=== PATIENT | female | born 1965 | race Caucasian/White ===

== ENCOUNTER 2017-02-19 19:35 | Emergency (ER) | payer OTHER ==
[2017-02-19 19:43] VITALS: TEMP 98.3
--- NOTE | 2017-02-19 20:12 | C.PDOC ---
History Of Present Illness 51 y/o female presents to the ED with complaints of worsening pain to sole of left foot x3 weeks. Pt states pain increases with walking and also notes swelling. Denies trauma, weakness, numbness or any other complaints. Time Seen by Provider: 02/19/17 19:44 Chief Complaint (Nursing): Lower Extremity Problem/Injury History Per: Patient History/Exam Limitations: no limitations Onset/Duration Of Symptoms: Days Current Symptoms Are (Timing): Worse Severity: Moderate Recent travel outside of the [place]: No Past Medical History Reviewed: Historical Data, Nursing Documentation, Vital Signs Vital Signs: Last Vital Signs Temp 98.3 F 02/19/17 19:40 Pulse 72 02/19/17 20:28 Resp 18 02/19/17 20:28 BP 142/72 02/19/17 20:28 Pulse Ox 99 02/19/17 20:43 - Medical History PMH: HTN Family History: States: Unknown Family Hx - Social History Hx Tobacco Use: No Hx Alcohol Use: No Hx Substance Use: No - Immunization History Hx Tetanus Toxoid Vaccination: No Hx Influenza Vaccination: No Hx Pneumococcal Vaccination: No Review Of Systems Except As Marked, All Systems Reviewed And Found Negative. Constitutional: Negative for: Fever, Chills Musculoskeletal: Positive for: Foot Pain (left foot pain and swelling) Neurological: Negative for: Weakness, Numbness Physical Exam - Physical Exam Appears: Non-toxic, No Acute Distress Skin: Warm, Dry, No Rash Head: Atraumatic, Normacephalic Eye(s): bilateral: Normal Inspection, PERRL Extremity: Normal ROM, No Pedal Edema, Capillary Refill (<2 seconds), Other ( large callus at distal plantar aspect left forefoot; no erythema, warmth or fluctuant mass) Pulses: Left Dorsalis Pedis: Normal Neurological/Psych: Oriented x3, Normal Speech, Normal Motor, Normal Sensation Gait: Steady ED Course And Treatment O2 Sat by Pulse Oximetry: 99 (room air) Pulse Ox Interpretation: Normal Disposition Counseled Patient/Family Regarding: Diagnosis, Need For Followup - Disposition Referrals: Shaik Michael MD [Primary Care Provider] - Disposition: HOME/ ROUTINE Disposition Time: 20:07 Condition: STABLE Additional Instructions: Please follow up with Podiatry Take motrin for pain Soak feet Return to ER if worse Forms: General Discharge Instructions - Clinical Impression Clinical Impression: Callus of foot - 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 - Scribe Statement The provider has reviewed the documentation as recorded by the Scribe Yovani Barron All medical record entries made by the Scribe were at my direction and personally dictated by me. I have reviewed the chart and agree that the record accurately reflects my personal performance of the history, physical exam, medical decision making, and the department course for this patient. I have also personally directed, reviewed, and agree with the discharge instructions and disposition.
[2017-02-19 20:30] VITALS: BP 142/72; PULSE 72; RESP 18
[2017-02-19 20:39] VITALS: O2SAT 99
== END 2017-02-19 20:30 | disposition home or self-care (01) ==
LOC: C.ER 19:35 → SUPCPDRO 19:35 → C.ER 20:30
DX: L84 Corns and callosities (principal)